=== PATIENT | male | born 1965 | race Asian ===

== ENCOUNTER 2021-07-10 08:15 | Emergency (ER) | payer MEDICAID ==
[~2021-07-10] VITALS: Ht 177.8 cm; Wt 72.6 kg
[2021-07-10 08:21] VITALS: BP 160/101
--- NOTE | 2021-07-10 08:21 | NUR ---
ASHKAN [id number] "was dumpster diving Last night started having abdominal pain- now worse."TO ER BED 13, HOOKED TO MONITOR, VSS. AWAITING MD VALDIVIA
--- NOTE | 2021-07-10 08:30 | NUR ---
Patient eloped from facility. ER MD notified.
== END 2021-07-10 08:32 | disposition home or self-care (01) ==
LOC: ER 08:27
DX: R10.9 Unspecified abdominal pain (principal); Z59.00 Homelessness unspecified; Z88.0 Allergy status to penicillin; Z88.5 Allergy status to narcotic agent